=== PATIENT | male | born 1990 | race African-American/Black ===

== ENCOUNTER 2020-11-18 19:04 | Emergency (ER) | payer OTHER, SELFPAY ==
[2020-11-18 19:10] VITALS: BP 126/69; PULSE 86; RESP 18; TEMP 37.2; O2SAT 99
--- NOTE | 2020-11-18 19:28 | ED.URI ---
HPI - URI/Sore Throat General Chief Complaint: Upper Respiratory Infection Stated Complaint: cough fatigue headache chills Source: patient and RN notes reviewed Mode of arrival: ambulatory History of Present Illness HPI Narrative: The patient, a smoker/nondrinker here with other sick family members, presents with cough. No loss of taste/smell, CP, vomiting/diarrhea, S OB, calf pain/edema, rash. Patient states he has a shorter 1 day history of anorexia, myalgias with head and low back pains, cough and associated chills-- without fever. Symptoms are mild, slightly worse at night. Girlfriend/fianc? tested positive in clinic. Point of care testing for Covid antigen is strongly/rapidly positive. Related Data Home Medications Medication Instructions Recorded Confirmed cyclobenzaprine 10 mg PO HS PRN 11/18/20 11/18/20 Allergies Allergy/AdvReac Type Severity Reaction Status Date / Time No Known Allergies Allergy Verified 11/18/20 19:20 Review of Systems Review of Systems: General/Constitutional: No weight loss,fever Eyes: N0: Redness,discharge Ears/Nose/Throat: No: Epistaxis,ear discharge Respiratory: Denies: Hemoptysis Gastrointestinal: No Vomiting, Bleeding-rectal Skin: No Lumps, eruption Neurologic: No Focal Weakness,Sz Hematologic: Denies: Petechiae/Purpura Psychiatric: No: Suicida ideationl All Other Systems: Reviewed and Negative PMFSH Comments At time of signature, agree with nursing past medical, surgical, social and family history. There is no relevant family history pertinent to the presenting complaint Exam Narrative: General Appearance: Well appearing, Well nourished EYE: PERRLA, Conjunctiva clear Ears: Auditory canal normal, TM normal Nose: Rhinorrhea, Mucousal erythema Mouth/Throat: MM moist, Uvula midline, Pharyngeal erythema Neck: Supple, No adenopathy Respiratory: No respiratory distress, Breath sounds equal, Clear to auscultation Cardiovascular: RRR, No JVD Musculoskeletal: Non tender, Normal strength Skin: Warm, Dry Neurological: A&O x3, CN II-XII intact Psychiatric: Normal mood, Normal affect Course Vital Signs Vital signs: Vital Signs Temperature 98.9 F 11/18/20 19:10 Pulse Rate 86 11/18/20 19:10 Respiratory Rate 18 11/18/20 19:10 Blood Pressure 126/69 11/18/20 19:10 Pulse Oximetry 99 11/18/20 19:10 Temperature 98.9 F 11/18/20 19:10 Pulse Rate 86 11/18/20 19:10 Respiratory Rate 18 11/18/20 19:10 Blood Pressure 126/69 11/18/20 19:10 Pulse Oximetry 99 11/18/20 19:10 MDM - URI/Sore Throat Lab Data Labs: Lab Results 11/18/20 Range/Units 20:00 POC SARS CoV-2 Ag Positive (Negative) Discharge Plan Discharge Clinical Impression: COVID-19 Patient Disposition: Home, Self-Care Condition: Stable Instructions: COVID-19 (Coronavirus Disease 2019) (ED) Additional Instructions: Begin isolation as discussed Go to pharmacy and when there get vitamins D, and B, C, zinc with baby aspirin Also get pulse oximeter; return to hospital for decreasing numbers to ~93% or less Prescriptions: New codeine-guaifenesin 10-100 mg/5 mL liquid 7.5 ml PO Q6H PRN (Reason: cough) Qty: 118 RF: 0 No Action cyclobenzaprine 10 mg tablet 10 mg PO HS PRN (Reason: Muscle Spasm) RF: 0 Other Ambulatory Orders: SARS-CoV-2 RNA, Qual RT-PCR (Routine) Location: Determined by Patient Ordered By: Bobby Best Follow-up/Referrals: PHYSICIAN,[facility] [Primary Care Provider] -
== END 2020-11-18 20:37 | disposition home or self-care (01) ==
PROVIDERS: Emergency Provider Emergency Medicine
DX: U07.1 COVID-19 (principal)
CPT/HCPCS: 87426; 99213; C9803; G0463